=== PATIENT | female | born 1970 | race African-American/Black ===

== ENCOUNTER → 2016-08-26 | Outpatient (CLI) | payer OTHER ==
--- NOTE | 2016-08-26 13:05 | KCIC ---
Bilateral digital screening mammograms with CAD: HISTORY Routine screening COMPARISON Comparison is made to previous examinations dated back to 08/25/2012. FINDINGS Breast density category C. The skin and nipples show no abnormalities. No abnormal lymph nodes are seen in the axilla. The breast parenchyma shows heterogeneous density. There are no dominant masses, suspicious calcifications or architectural distortions. IMPRESSION No evidence of malignancy. Recommend routine annual mammographic screening. This study was interpreted with the benefit of Computerized Aided Detection (CAD). Mammography is not 100% sensitive in detecting breast cancer. Therefore, a self breast exam and a clinical breast exam are very important. A negative mammogram does not negate a clinically suspicious finding and should not result in a delay in biopsying a clinically suspicious abnormality. BI-RADS category 1. Negative. This patient's information has been entered into a reminder system for the patient to be notified with the results of this examination and a target date for her next mammograms. Electronically signed by: Herminia Perry MD (Aug 26, 2016 13:03:05)
== END | disposition home or self-care (01) ==
LOC: KCIC MAMMO 08:33
PROVIDERS: ATTEND Nurse Practitioner Family
DX: Z12.31 Encounter for screening mammogram for malignant neoplasm of breast (principal)
CPT/HCPCS: G0202; 77067

== ENCOUNTER → 2017-07-28 | Outpatient (CLI) | payer OTHER | END | disposition home or self-care (01) | LOC: KCIC 08:42 | DX: M19.072 Primary osteoarthritis, left ankle and foot (principal); M20.11 Hallux valgus (acquired), right foot | CPT/HCPCS: 73630; 73650 ==

== ENCOUNTER → 2017-08-26 | Outpatient (CLI) | payer OTHER | END | disposition home or self-care (01) | LOC: KCIC MAMMO 09:22 | DX: Z12.31 Encounter for screening mammogram for malignant neoplasm of breast (principal) | CPT/HCPCS: 77067 ==

== ENCOUNTER → 2018-09-16 | Outpatient (CLI) | payer BC ==
--- NOTE | 2018-09-16 13:48 | KCIC ---
Transabdominal and transvaginal sonography of the pelvis Clinical indications: Menorrhagia. Premenopausal. Transabdominal sonography: Uterus is anteverted in position. The longitudinal and AP and transverse dimensions of the uterus are 9.7 m and 6.1 cm and 7.1 cm respectively. The endometrial canal is poorly visualized. Therefore, transvaginal sonography will be performed. There is a submucosal mass of the fundus of the uterus measuring up to 2.8 cm in greatest dimension. There is a posterior myometrial fibroid in the mid body measuring 1.9 cm. There is a solid right adnexal mass lesion measuring up to 3.8 cm in size which may represent a serosal or pedunculated uterine fibroid. Neither ovary is visualized transabdominally exam. Transvaginal examination: The endometrial canal measures 2 mm in thickness. However, there is hypoechoic solid nodule within the posterior aspect of the endometrial canal within the fundus of the uterus which measures up to 1.4 cm in size. This could represent an endometrial polyp or endometrial mass or could represent a submucosal fibroid. Color Doppler flow is seen extending into it. The left ovary measures 2.1 cm and 1.1 cm and 1.7 cm in size and is normal. Color Doppler flow is seen within the left ovary. The right ovary measures 3.1 cm and 1.4 cm and 2.4 cm in size and contains a simple follicular cyst. Color Doppler flow is seen within the right ovary. The right ovary is separate from the solid adnexal mass. No adnexal mass measures 4.6 cm in greatest dimension by transvaginal exam. Or IMPRESSION: There is a 4.6 cm solid adnexal mass on the right side. This may represent a pedunculated or serosal fibroid. This is separate from the right ovary. Anterior submucosal fibroid of the fundus of the uterus measuring up to 2.8 cm in size. There is a posterior mid body uterine fibroid measuring 1.9 cm. There is an endometrial solid nodule versus submucosal nodule of the posterior aspect of the endometrial canal within the fundus of the uterus measuring up to 1.4 cm in greatest dimension. Color Doppler flow is seen extending into. This could represent an endometrial polyp or endometrial solid nodule related to hyperplasia or early malignancy. Small submucosal fibroid is another possibility. Both ovaries are normal. Electronically signed by: Isak Torres MD (09/16/2018 1:45 PM) -KCIC2
--- NOTE | 2018-09-17 07:34 | KCIC ---
BILATERAL SCREENING MAMMOGRAM History: Routine screening. Comparison: Bilateral mammogram 08/26/2017 and dating back to 2014. Technique: Routine bilateral digital mammogram views were obtained. Findings: Breast Tissue Density B : There are scattered areas of fibroglandular density. There are no dominant masses, suspicious microcalcifications, or architectural distortion. IMPRESSION: No mammographic evidence of malignancy. Recommend routine screening. BI-RADS category 1: Negative. The images were reviewed with computer aided detection. Patient information is entered into the reminder system with a target due date for the next screening mammogram. Mammography is the most sensitive method for finding small breast cancers, but it does not detect them all and is not a substitute for careful clinical examination. A negative mammogram does not negate a clinically suspicious finding and should not result in delay in biopsying a clinically suspicious abnormality. "Our facility is accredited by the [employer] Mammography Program." Electronically signed by: Jesús Romero MD (09/17/2018 7:32 AM) [id number]
== END | disposition home or self-care (01) ==
LOC: KCIC US 08:36
PROVIDERS: ATTEND Nurse Practitioner Family
DX: Z12.31 Encounter for screening mammogram for malignant neoplasm of breast (principal); D25.0 Submucous leiomyoma of uterus; N83.8 Other noninflammatory disorders of ovary, fallopian tube and broad ligament
CPT/HCPCS: 76830; 76856; 77067

== ENCOUNTER → 2018-12-20 | Outpatient (CLI) | payer BC ==
--- NOTE | 2018-12-21 09:07 | KCIC ---
MR of the left ankle HISTORY: Left ankle pain medially for 5 or 6 months. TECHNIQUE: Routine multiplanar sequences are obtained. FINDINGS: The peroneal tendons are intact. The anterior talofibular ligament is poorly seen, likely due to a nonacute tear. Calcaneofibular ligament appears intact as does the posterior talofibular ligament. The syndesmotic ligaments are intact. Posterior tibial tendon demonstrates mild thickening and heterogeneity with mild partial interstitial tearing. Mild fluid surrounds the tendon. Flexor tendons are intact. The anterior tibial and extensor tendons are intact. Mild signal within the distal Achilles tendon compatible with mild tendinosis. Subjacent calcaneal bone marrow edema and enthesophyte. Trace fluid in the pre-Achilles bursa. No acute plantar fasciitis. Subtalar joints are patent. Tarsal sinus is intact. Talar dome is intact. No aggressive bone destruction. No acute fracture. Mild fluid in the tibiotalar and posterior subtalar joints. Tiny soft tissues cystic lesion just superficial to the lateral malleolus measuring 5 mm. IMPRESSION: 1. Mild posterior tibial tenosynovitis with mild interstitial tearing. 2. Mild insertional Achilles tendinosis with subjacent calcaneal marrow edema. 3. Poorly seen anterior talofibular ligament likely due to a remote injury. 4. Small 5 mm soft tissue cyst or fluid collection superficial to the lateral malleolus. Electronically signed by: Thomas Acuna MD (12/21/2018 9:04 AM) [id number]
== END | disposition home or self-care (01) ==
LOC: KCIC MRI 15:57
PROVIDERS: ATTEND Nurse Practitioner Family
DX: M65.872 Other synovitis and tenosynovitis, left ankle and foot (principal); M25.872 Other specified joint disorders, left ankle and foot; M25.472 Effusion, left ankle
CPT/HCPCS: 73721

== ENCOUNTER → 2019-05-11 | Outpatient (CLI) | payer BC ==
[~2019-05-11] MED LIST: CALC250T PO; MULT-245 PO; NABU500T PO; OMEG1CAP27 PO
[2019-05-11 15:03] LABS: BILIRUBIN,URINE NEGATIVE (NEG); CLARITY,URINE CLEAR; COLOR,URINE YELLOW; NITRITE,URINE NEGATIVE (NEG); PROTEIN,URINE NEGATIVE (NEG-TRACE)
--- NOTE | 2019-05-11 15:15 | NUR ---
PT DID NOT RECEIVE PREP INSTRUCTIONS AT DR FAULKNER'[S OFFICE TODAY. EXPLAINED CLEAR LIQ DAY PRIOR AND MAG CITRATE AT 1PM. INSTRUCTED TO CALL DR FAULKNER'S NURSE FOR CLARIFICATION AND TO MAKE SURE THIS HAS NOT CHANGED. VOICES UNDERSTANDING.
--- NOTE | 2019-05-11 15:18 | EKG ---
[facility] [address] [place] [address] Test Date: 2019-05-11 Test Time: 15:17:36 Pat Name: YASMIN STANLEY Department: Room: Gender: F Data Entry Processor: LAURIE : 1970 Requested By: ORACIO FAULKNER Order Number: [id number] Reading MD: Abdirahman Mayfield MD Measurements Intervals [place] Rate: 55 P: 59 IL: 166 QRS: 11 QRSD: 84 T: 17 QT: 426 QTc: 410 Interpretive Statements SINUS RHYTHM Electronically Signed On 05-12-2019 10:09:00 GUM SPRAYER by Abdirahman Mayfield MD
[2019-05-11 15:26] LABS: SQUAMOUS EPITHELIAL CELL,UR MOD /LPF
[2019-05-11 15:27] LABS: BACTERIA,URINE 0 /HPF (0-FEW); WBC,URINE OCC /HPF (0-4)
--- NOTE | 2019-05-11 15:45 | NUR ---
INSTRUCTED PT ON IS AND ENCOURAGED TO PRACTICE AT HOME FOR POST SURGERY TO PREVENT POST OP PNEUMONIA. FEICF5H UNDERSTANDING. RETURN DEMO PROVIDED.
[2019-05-11 15:46] LABS: BASO % 1 % (0-3); EOS # 0.2 x10^3/uL (0.0-0.7); EOS % 3 % (0-3); HEMATOCRIT 33.8 % (36.0-47.0); HEMOGLOBIN 11.3 g/dL (12.0-15.5); LYMPH # 1.6 x10^3/uL (1.0-4.8); LYMPH % 28 % (24-48); MEAN CORPUSCULAR HEMOGLOBIN 33 pg (25-35); MEAN CORPUSCULAR HGB CONC 33 g/dL (31-37); MEAN CORPUSCULAR VOLUME 97 fL (79-100); MONO # 0.5 x10^3/uL (0.0-1.1); MONO % 9 % (0-9); NEUT # 3.5 x10^3/uL (1.8-7.7); NEUT % 60 % (31-73); PLATELET COUNT 224 x10^3/uL (140-400); RED BLOOD COUNT 3.47 x10^6/uL (3.50-5.40); RED CELL DISTRIBUTION WIDTH 13.8 % (11.5-14.5); WHITE BLOOD COUNT 5.9 x10^3/uL (4.0-11.0)
[2019-05-11 16:43] LABS: ALBUMIN 3.7 g/dL (3.4-5.0); CALCIUM 9.1 mg/dL (8.5-10.1); CREATININE 0.8 mg/dL (0.6-1.0); GFR 91.9; POTASSIUM 3.7 mmol/L (3.5-5.1); TOTAL BILIRUBIN 0.2 mg/dL (0.2-1.0); TOTAL PROTEIN 7.3 g/dL (6.4-8.2)
== END | disposition home or self-care (01) ==
LOC: SURGPAT 14:15
PROVIDERS: ATTEND Obstetrics & Gynecology
DX: Z01.812 Encounter for preprocedural laboratory examination (principal); N92.1 Excessive and frequent menstruation with irregular cycle; D64.9 Anemia, unspecified
CPT/HCPCS: 36415; 80053; 81001; 85025; 93005

== ENCOUNTER 2019-05-18 05:45 | Observation (INO) | payer BC ==
[2019-05-18] VITALS (10 sets, daily range): BP systolic 111–128; BP diastolic 51–66
[~2019-05-18] VITALS: Ht 154.9 cm; Wt 64.4 kg
[2019-05-18] MEDS ORDERED: BUPIVACAINE-EPI 0.25%-1:200000 MPF 30 ML VIAL. INJ ONE (06:00)
[2019-05-18] MEDS ORDERED: MORPHINE SULFATE 2 MG/ML VIAL. IV PRN ×2 (07:00→10:00)
[2019-05-18] MEDS ORDERED: fentaNYL PF VIAL 100 MCG/2 ML VIAL IV PRN ×2 (07:00)
[2019-05-18] MEDS ORDERED: IV RINGERS,LACTATED 1000ML 1,000 ML IV SCH (07:00)
[2019-05-18] MEDS ORDERED: LIDOCAINE 1% PF 2 ML VIAL. ID PRN (07:00)
[2019-05-18] MEDS ORDERED: PROCHLORPERAZINE 10 MG/2 ML VIAL. IV PRN (07:00)
[2019-05-18] MEDS ORDERED: HYDROmorphone 2 MG/ML VIAL IV PRN (07:00)
[2019-05-18] MEDS ORDERED: ONDANSETRON PF 4 MG/2 ML VIAL. IV PRN ×2 (07:00→10:00)
[2019-05-18] MEDS ORDERED: MIDAZOLAM HCL/PF 2 MG/2 ML VIAL. ONE (07:18)
[2019-05-18] MEDS ORDERED: fentaNYL PF VIAL 100 MCG/2 ML VIAL ONE (07:18)
[2019-05-18] MEDS ORDERED: ROCURONIUM 50 MG/5 ML VIAL. ONE (07:19)
[2019-05-18] MEDS ORDERED: SUCCINYLCHOLINE 200 MG/10 ML VIAL. ONE (07:19)
[2019-05-18] MEDS ORDERED: ESTROGENS, CONJ VAGINAL CREAM 30GM TUBE. ONE (07:19)
[2019-05-18] MEDS ORDERED: GLYCOPYRROLATE 1 MG/5 ML VIAL. ONE (08:17)
[2019-05-18] MEDS ORDERED: SEVOFLURANE > 120 MINUTES. IH ONE (08:50)
[2019-05-18] MEDS ORDERED: PROPOFOL 20 ML IV ONE (08:50)
[2019-05-18] MEDS ORDERED: LIDOCAINE 2% PF 5 ML VIAL. ONE (08:50)
[2019-05-18] MEDS ORDERED: NEOSTIGMINE METHYLSULFATE 5 MG/5 ML SYRINGE. ONE (08:56)
[2019-05-18] MEDS ORDERED: KETOROLAC 30 MG/ML VIAL. ONE (09:39)
--- NOTE | 2019-05-18 09:55 | PDOC ---
BRIEF OPERATIVE NOTE Date: May 18, 2019 Pre-Op Diagnosis anemia, fibroids, menorrhagia Post-Op Diagnosis same Procedure Performed LAVH/bilateral salpingectomy Surgeon Dr. Nicolle Petersen Bingo Attendant CHEYENNE Smiley Anesthesiologist Dr. Leone Anesthesia Type: General Blood Loss 50cc IV Fluid 1L Urine Output 150cc clear via rosado Specimens Obtained cervix, uterus and bilateral tubes Findings enlarged fibroid uterus, normal bilateral tubes and ovaries (small paratubal cyst right side) without significant adhesive disease Complications none Operative Note [id number] NICOLLE PETERSEN MD May 18, 2019 09:55
[2019-05-18] MEDS ORDERED: CALCIUM CARBONATE 500 MG TAB.CHEW PO PRN (10:00)
[2019-05-18] MEDS ORDERED: oxyCODONE/APAP 5/325 1 TAB TABLET PO PRN (10:00)
[2019-05-18] MEDS ORDERED: MAGNESIUM HYDROXIDE 2,400 MG/30 ML ORAL.SUSP. PO PRN (10:00)
[2019-05-18] MEDS ORDERED: SIMETHICONE 80 MG TAB.CHEW PO PRN (10:00)
[2019-05-18] MEDS ORDERED: diphenhydrAMINE 50 MG/ML VIAL IV PRN (10:00)
[2019-05-18] MEDS ORDERED: HYDROcodone/APAP 5/325MG 1 TAB TABLET PO PRN (10:00)
[2019-05-18] MEDS ORDERED: diphenhydrAMINE HCL 25 MG CAPSULE PO PRN (10:00)
[2019-05-18] MEDS ORDERED: NALOXONE 0.4 MG/ML VIAL. IV PRN (10:00)
[2019-05-18] MEDS ORDERED: LACTULOSE 20 GM/30 ML SOLUTION. PO PRN (10:00)
[2019-05-18] MEDS ORDERED: KETOROLAC 30 MG/ML VIAL. IVP PRN (10:00)
[2019-05-18] MEDS ORDERED: ZOLPIDEM 5 MG TABLET. PO PRN (10:00)
[2019-05-18] MEDS ORDERED: 0.9 % SODIUM CHLORIDE 10 ML DISP.SYRIN. IV PRN (10:00)
[2019-05-18] MEDS ORDERED: MAG HYDROX/ALUMINUM HYD/SIMETH 30 ML ORAL.SUSP PO PRN (10:00)
--- NOTE | 2019-05-18 10:35 | OP ---
DATE OF SURGERY: 05/18/2019 PREOPERATIVE DIAGNOSES: Anemia, fibroids, menorrhagia. POSTOPERATIVE DIAGNOSES: Anemia, fibroids, menorrhagia. PROCEDURE: Laparoscopic-assisted vaginal hysterectomy with bilateral salpingectomy. SURGEON: Oracio Petersen MD SOLE SEAMER: First Scott Mitchell. ANESTHESIOLOGIST: Randall Leone MD ANESTHESIA: General. BLOOD LOSS: 50 mL. URINE OUTPUT: 150 mL, clear via Meyers catheter. IV FLUIDS: 1 liter of Crystalloid. SPECIMENS: Cervix, uterus with bilateral tubes. FINDINGS: An enlarged fibroid uterus that was retroverted, normal bilateral tubes and ovaries. There was a small paratubal cyst, I believe, on the right side, otherwise normal without significant adhesive disease. COMPLICATIONS: None. DESCRIPTION OF PROCEDURE: This patient was taken to the operating room where general anesthesia was placed. The patient was placed in dorsal lithotomy position in [facility]. The patient's abdomen and vagina were both prepped and draped in the normal sterile fashion and a Meyers catheter had been inserted under sterile technique. Upon my arrival, a timeout was performed where it was stated she had received her preoperative antibiotics and what we were doing, once everyone agreed, a bivalve speculum was placed in the patient's vagina. A single-tooth tenaculum was used to grasp the anterior lip of the cervix. A 10 mL of 0.25% Marcaine with epinephrine was circumferentially injected around the cervix for both hemodissection and hemostatic purposes later. The Valtchev uterine manipulator was placed through the endocervical os, locked on the single tooth tenaculum and the bivalve speculum was then removed. Top gloves were discarded and changed. Attention was then turned to the abdomen where a small supraumbilical skin incision was made with the scalpel, carried down to the underlying layer to the fascia. The 5 mm Visiport was used to directly enter the abdominal cavity. Opening patient pressure was 2-3 mmHg. Carbon dioxide gas was used to then appropriately insufflate the abdominal cavity to maintain a pressure of 15 mmHg. Once the patient was in Trendelenburg position and initial look around was good, she was injected with local at the supraumbilical finding the right and left lower quadrant areas after transilluminating the abdominal wall, finding an area clear of any vasculature. It was injected with 0.25% Marcaine. A small incision was made in both trocars were placed under direct visualization without difficulty. A 4-5 mL of air was placed in the trocar cuff. I then did move the camera laterally to look at the umbilical port make sure it was in. Once it was assured to be in a good spot without any adhesions around, it was also insufflated. At this point, the procedure was started. The left tube and ovary were elevated. The ureter was found coursing low in the pelvis going above the ovary, below the tube, doing a salpingectomy with the LigaSure and then crossing the left uterine ovarian pedicle and the left round ligament. This was done exactly the same on the right side, first elevating the right tube and ovary, again there was a very small normal paratubal cyst on the right, finding the ureter coursing low, again normal ovary. The patient wished to retain them. So, going above the ovary, below the tube, doing a salpingectomy with the LigaSure crossing the right uterine ovarian pedicle and then crossing the right round ligament on the lateral side of a huge anterior fibroid that was right there near the round ligament on the right side. Once this was done, the bladder flap was elevated in the midline with the uterus pushed cephalad and the monopolar hook was used to make the bladder flap sharply and it was pulled down gently until it went [id number] and then pushing the uterus again cephalad and moving it over to the right side going down the left side of the uterus, getting the uterine vessels down to the level of the uterosacrals. This was done exactly the same on the right side, getting the uterine vessels and staying right inside of it only went about fdc down on this side, the bladder was kind of punched on itself with a big fibroid on that side, so I kind of left it and knew I could get it vaginally. So once the uterus was blanched and the uterines were obtained on both sides, it was all the way down on the left half way down on the right and it was completely free and blanched. I removed all instruments and attention was turned vaginally. The single tooth and Valtchev were removed. Thyroid Bernice clamps were placed on the anterior and posterior lips of the cervix respectively. A weighted speculum was in the vagina. A scalpel was used to make a circumferential incision in the cervix using the blunt end of the Kofikauer suction. It was used to gently push up while the knife was used to do sharp dissection anteriorly. An open Ray-Jovanna was then used to just gently slide it off the anterior lip of the cervix and the anterior cul-de-sac was digitally and bluntly entered easily. The Ray-Jovanna was then passed back off. The curved Trey was placed in the anterior cul-de-sac. The cervix was elevated and the posterior cul-de-sac was sharply entered with curved Lofton scissors. A #0 Vicryl stitch was used to secure the posterior peritoneum here to the vaginal cuff, was tagged with a curved Jordana clamp and needle was cut and passed off. Short weighted vaginal speculum was removed and replaced with the long weighted Betsey speculum in the posterior cul-de-sac. Curved Karina clamps x 2 were placed on the patient's left uterosacral ligament where they were doubly clamped with curved Heaneys, cut with curved Lofton scissors and suture ligated x 2 with 0 Vicryl. Second one was taken through the vaginal cuff securing uterosacral ligament to the vaginal cuff, tagging it with a straight Jordana clamp and cutting and passing the needle off. This was done exactly the same on the patient's right side, double clamping the uterosacrals with curved Karina's, cutting with Lofton scissors and suture ligating x 2 with 0 Vicryl, taking the second one through the vaginal cuff, tagging it with a straight Jordana clamp and cutting and passing the needle off. The remaining pedicle on the right side was delineated with a curved mixture and the vaginal LigaSure was used to cauterize and cut it. This was done on the left side as well. At this point, the cervix, uterus with fibroids and bilateral tubes were delivered in toto and passed off for permanent pathology. The anterior bladder peritoneum was easily seen and grasped with a long Allis. A sponge stick was used to examine the pedicles and a 2-0 Vicryl was taken through the anterior bladder peritoneum, left uterosacral ligament, posterior peritoneum and right uterosacral ligament, thus closing the peritoneum in a pursestring like fashion. The right and left uterosacral tags were clipped. The cuff was closed in an anterior to posterior running locked fashion with a full-length 2-0 Vicryl and tied to that posterior cuff tag. Once this was done, the cuff was hemostatic, all gloves were discarded and changed and attention was turned back above for a second look. Gas was reinsufflated. The patient was placed back in Trendelenburg position. Copious irrigation revealed some mild oozing from the inferior left side. I did cauterize that edge with excellent results and then I placed Tisseel on there and then I used Ihsan for the remaining pedicles with a Meyers catheter to apply at all over the raw surface peritoneum of the bladder, the lateral edges all the way up to the ovaries, but both ovaries remained per the patient's request. There was no active bleeding. The cul-de-sacs were both clear and dry. I did visualize a normal appendix, normal edge of the right upper quadrant. No significant adhesive disease was observed and a white powdery Ihsan remain powdery nothing was welling up at all. I did release some of the gas and it remained that way. The air was removed from the right and left lower quadrant trocar sites. These were removed under direct visualization. These were hemostatic. The cuff looked good still, so at this point, the gas was taken out of the supraumbilical trocar as well. Gas was released from the abdomen. It was removed, all three port sites were closed with 4-0 nylon at the skin and the patient was awakened from anesthesia and was brought to recovery room in stable condition. ORACIO PETERSEN MD DR: RANGEL/casey JOB#: [id number] / [id number]
--- NOTE | 2019-05-18 18:45 | NUR ---
Spoke with Dr. Petersen earlier and informed her that the pt has tolerated food, voided x4, walked around unit and passed a little gas from her bottom. Pt requesting to go home, Dr. Petersen gave an order to D/C. Discharge and follow up instructions given to pt. Rx was given to pt prior to admission. I ambulated pt out of the hospital with her and all her belongings.
--- NOTE | 2019-05-20 15:07 | PATHOLOGY ---
[facility] Accession Number: [id number] . 01 Material submitted: . uterus - UTERUS, CERVIX, BILATERAL FALLOPIAN TUBES. Modifiers: bilateral . 01 Clinical history: . Uterine fibroids . 02 Diagnosis: Uterus and bilateral fallopian tubes, laparoscopic assisted vaginal hysterectomy with bilateral salpingectomy: - Leiomyomas, uterine corpus, subserosal/intramural/submucosal, the largest of which measures 4.8 cm in greatest dimension and shows central area of infarction (uterine weight 184 grams). 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 - Mild chronic cervicitis with focal squamous metaplasia. - Attenuated atrophic and focally proliferative endometrium. - Right paratubal cyst. - Congestion of bilateral fallopian tubes. (JPM:[facility] 05/20/2019) [facility] 05/20/2019 1050 Local . 02 Comment: There is no atypia or evidence of malignancy. (JP:[facility] 05/20/2019) . 02 Electronically signed: . Jalil Chaudhry MD, Pathologist NPI- [id number] . 01 Gross description: . The specimen is received in formalin, labeled "Xavier, Lora, uterus, cervix, bilateral fallopian tubes" and consists of a 184 g uterus with attached cervix measuring 9.5 x 5.8 x 5.7 cm. The uterus is multinodular with a subserosal nodule at the fundus measuring 1.8 x 0.8 cm and a another subserosal nodule on the right lateral fundus measuring 4.8 x 3.3 cm. The uterine serosa is mckeon smooth shiny. The gaping slitlike 1.5 cm cervical os is surrounded by glistening pink-mckeon ectocervical mucosa. It is bivalved revealing multiple submucosal intramural and subserosal nodules with the largest measuring 4.8 cm. The endocervical canal is pink-mckeon measuring 3.5 cm. The endometrial cavity is roughly oval measuring 4.9 cm in length and 3.4 cm in width lined by an attenuated pink-mckeon endometrium measuring 0.1 cm or less. The myometrium is pink-mckeon measuring up to 2.4 cm. One intramural nodule shows degenerative changes and the largest subserosal nodule shows extensive hemorrhage. The rest of the nodules show homogeneous white whorled cut surfaces. No additional masses or lesions are identified. . The bilateral fallopian tubes are dark pink/purple and smooth with the right having a paratubal cyst measuring 1.2 cm. Sectioning each reveals a well-defined lumen. Horse Buyer sections are submitted as follows: . A1: Anterior cervix A2: Posterior cervix A3: Anterior endomyometrium A4: Posterior endomyometrium A5: Nodule with degenerative changes A6-A7: Largest nodule with extensive hemorrhage A8: Additional unremarkable nodule A9: Right fallopian tube A10: Left fallopian tube (SDY; 05/19/2019) SYU/SYU 05/19/2019 1150 Local . 02 Pathologist provided ICD-10: D25.0, D25.1, D25.2, N72, N83.8 . 02 CPT . 387768 Specimen Comment: A courtesy copy of this report has been sent to [phone], [phone] Specimen Comment: [id number] Specimen Comment: Report sent to and Performed at: 01 [facility] [address], [place], [place] [id number] MD Haider Barillas MD Phone: [phone] Performed at: 02 [facility] [address], [place] [id number] MD Jalil Chaudhry MD Phone: [phone]
== END 2019-05-18 18:45 | disposition home or self-care (01) ==
LOC: SURG 05:45 → 3 NORTH 10:16
PROVIDERS: ADMIT Obstetrics & Gynecology; ATTEND Obstetrics & Gynecology
DX: D25.9 Leiomyoma of uterus, unspecified (principal); N92.1 Excessive and frequent menstruation with irregular cycle; D64.9 Anemia, unspecified
CPT/HCPCS: 36415; 58552; 81025; 86850; 86900; 86901; 88307; A7015; G0378; G0379; J0330; J0690; J1885; J2001; J2250; J2704; J2710; J3010; J3490; J7030; J7120

== ENCOUNTER → 2019-05-31 | Outpatient (CLI) | payer BC ==
[2019-05-18 18:05] VITALS: BP 128/55
--- NOTE | 2019-05-31 15:58 | KCIC ---
EXAM: Right shoulder, 3 views; sternoclavicular joints, 3 views. HISTORY: Pain. COMPARISON: None. FINDINGS: 3 views of the right shoulder and 3 views of the sternoclavicular joints are obtained. There is no fracture, dislocation or subluxation. There is a tiny corticated ossicle inferior to the acromial clavicular joint, likely a chronic fragmented spur or the sequela of remote injury. There is slight asymmetry in the left greater than right sternoclavicular joint spaces which is likely projectional. IMPRESSION: No acute osseous finding. Electronically signed by: Cecilia Dent MD (05/31/2019 3:55 PM) [facility]
== END | disposition home or self-care (01) ==
LOC: KCIC 13:39
PROVIDERS: ATTEND Family Medicine
DX: M25.511 Pain in right shoulder (principal); M89.8X1 Other specified disorders of bone, shoulder
CPT/HCPCS: 71130; 73030

== ENCOUNTER → 2019-11-11 | Outpatient (CLI) | payer BC ==
[2019-05-18 18:05] VITALS: BP 128/55
--- NOTE | 2019-11-11 08:54 | KCIC ---
Bilateral digital screening mammograms: Reason for examination: Routine screening. Comparison is made to previous studies dated back to 08/03/2015. Interpretation was made with the benefit of CAD. The skin and nipples show no abnormalities. No abnormal axillary lymph nodes are seen. The breast parenchyma shows scattered fibroglandular density. (Breast density: Category B.) There are no dominant masses, suspicious calcifications or architectural distortions. Impression: No evidence of malignancy. Recommend routine screening. BI-RADS Category 1: Negative. "Our facility is accredited by the [employer] Mammography Program." This patient's information has been entered into a reminder system for the patient to be notified with the results of her examination and a target date for the next mammogram. Electronically signed by: Annabel Perry MD (11/11/2019 8:51 AM) [email or web address]
== END | disposition home or self-care (01) ==
LOC: KCIC MAMMO 08:10
PROVIDERS: ATTEND Nurse Practitioner Family
DX: Z12.31 Encounter for screening mammogram for malignant neoplasm of breast (principal)
CPT/HCPCS: 77067

== ENCOUNTER → 2020-04-12 | Outpatient (CLI) | payer BC ==
[2019-05-18 18:05] VITALS: BP 128/55
[~2020-04-12] MED LIST changes: -NABU500T PO; +NABU500T7 PO
--- NOTE | 2020-04-12 17:36 | CARD ---
MR#: [id number] Date of Study: 04/12/2020 Ordering Physician: KATHY AHUJA, Referring Physician: KATHY AHUJA, Tech: Shaniqua Gonzalesjarrodashok APPROVED REPORT INDICATION Chest Pain Reason : Patient complained of pain PROCEDURE The patient underwent an Exercise Stress Test using the Bhupinder Protocol. Blood pressure, heart rate, a nd EKG were monitored. An Echocardiogram was performed by technical maintenance technician in four stages in quad fashion. At peak stress four se lected images were obtained and placed side by side with resting images for comparison. STRESS ECHO FINDINGS The resting Echocardiogram showed normal left ventricular systolic contractility with an estimated Ej ection Fraction of about 55 %. The Resting Echocardiogram showed normal augmentation of myocardial wall segments using a 16 segment model. The Stress Echocardiogram showed normal augmentation of myocardial wall segments using a 16 segment m brea. The Stress Echocardiogram left ventricular systolic contractility has an estimated Ejection Fraction of about 70%. Test Type: Exercise Stress Nurse/Tech: Jeanette Mckenzie R.N. Test Indications: chest pain Cardiac History and Allergies: family hx Medications: none Resting ECG: SR Resting Heart Rate: 77 bpm Resting Blood Pressure: 140/65mmHg Pretest Chest Pain: No chest pain Nurse/Tech Notes lungs cta, heart tones regular Stress Symptoms No chest pain or symptoms. POST EXERCISE Reason for Termination: Reached target heart rate Target HR: Yes Max HR: 162 bpm 96% of Maximum Predicted HR: 169 bpm Exercise duration: 11:38 min:sec, 4 Stage Exercise capacity: 12.8METs Max Blood Pressure: 167/68mmHg Blood Pressure response to exercise: Normal blood pressure response during stress. Heart Rate response to exercise: normal Chest Pain: No. Arrhythmia: Yes. occ PVC ST Change: Yes. ST depression during exersice, resolved during recovery, no chest pain STRESS ECG Stress EKG shows no significant changes. Preliminary Notification Critical Value: No <Conclusion> Normal baseline EKG Good exercise capacity with 12.8 Mets reached. Normal stress EKG Normal resting wall motion and EF of 55% Normal stress wall motion and EF of 60% (Of note, stress images obtained at less than 85% APMHR decre asing specificity and senstivitiy of test). Signed by : Abdirahman Mayfield, Electronically Approved : 04/12/2020 17:36:42
== END ==
LOC: ECHO 12:44
PROVIDERS: ATTEND Internal Medicine Cardiovascular Disease
DX: R07.9 Chest pain, unspecified (principal)
CPT/HCPCS: 93017; 93350

== ENCOUNTER → 2020-11-12 | Outpatient (CLI) | payer BC ==
[2019-05-18 18:05] VITALS: BP 128/55
[~2020-11-12] MED LIST changes: +NABU500T11 PO; -NABU500T7 PO
--- NOTE | 2020-11-12 17:54 | KCIC ---
BILATERAL SCREENING MAMMOGRAM History: Routine screening. Comparison: Bilateral mammogram 11/11/2019 and prior years. Technique: Routine digital mammogram views were obtained. Findings: Breast Tissue Density B : There are scattered areas of fibroglandular density. There are no dominant masses, suspicious microcalcifications or architectural distortion. IMPRESSION: No mammographic evidence of malignancy. Recommend routine screening. BI-RADS category 1: Negative. The images were reviewed with computer aided detection. Patient information is entered into the reminder system with a target due date for the next screening mammogram. Mammography is the most sensitive method for finding small breast cancers, but it does not detect the m all and is not a substitute for careful clinical examination. A negative mammogram does not negate a clinically suspicious finding and should not result in delay in biopsying a clinically suspicious a bnormality. "Our facility is accredited by the [employer] Mammography [employer]." Electronically signed by: Jesús Romero MD (11/12/2020 5:51 PM) [id number]
== END ==
LOC: KCIC MAMMO 08:05
PROVIDERS: ATTEND Nurse Practitioner Family
DX: Z12.31 Encounter for screening mammogram for malignant neoplasm of breast (principal)
CPT/HCPCS: 77067